=== PATIENT | male | born 1985 | race Caucasian/White ===

== ENCOUNTER → 2022-09-18 | Outpatient (CLI) | payer BC | LOC: M CARPUL 07:42 | PROVIDERS: ATTEND Nurse Practitioner Family | DX: I77.810 Thoracic aortic ectasia (principal); Z95.2 Presence of prosthetic heart valve ==

== ENCOUNTER → 2025-01-06 | Outpatient (CLI) | payer BC | LOC: M SOG 07:05 | PROVIDERS: ATTEND Physician Assistant | DX: M79.641 Pain in right hand (principal); M79.642 Pain in left hand ==